=== PATIENT | male | born 1945 | race Hispanic/Latino ===

== ENCOUNTER 2018-04-03 07:53 | Inpatient (IN) | payer OTHER ==
[2018-04-01 16:46] LABS: BASOPHILS % 0.1 % (0.0-1.0); EOSINOPHILS # (AUTO) 0.3 (0.0-0.4); EOSINOPHILS % 4.4 % (0.0-6.0); HEMATOCRIT 34.2 % (38.2-49.6); HEMOGLOBIN 10.1 g/dL (14.0-18.0); LYMPHOCYTES # (AUTO) 3.2 (1.0-3.2); LYMPHOCYTES % 46.1 % (18.0-39.1); MEAN CORPUSCULAR HEMOGLOBIN 24.3 pg (28-32); MEAN CORPUSCULAR HGB CONC 29.5 g/dL (31-35); MEAN CORPUSCULAR VOLUME 82.4 fL (81-99); MONOCYTES # (AUTO) 0.5 (0.2-0.8); MONOCYTES % 7.4 % (4.4-11.3); NEUTROPHILS # (AUTO) 2.9 (2.1-6.9); NEUTROPHILS % 41.4 % (38.7-80.0); PLATELET COUNT 253 x10e3/uL (140-360); RED BLOOD COUNT 4.15 x10e6/uL (4.3-5.7); RED CELL DISTRIBUTION WIDTH 17.7 % (11.7-14.4)
[2018-04-01 16:55] LABS: BLOOD UREA NITROGEN 9 mg/dL (7-26); BUN/CREATININE RATIO 8 (6-25); CALCIUM 8.6 mg/dL (8.4-10.2); CARBON DIOXIDE 21 mmol/L (22-29); CHLORIDE 111 mmol/L (98-107); CREATININE, SERUM 1.07 mg/dL (0.72-1.25); EST GLOMERULAR FILTRATION RATE > 60 ML/MIN (60-); GLUCOSE 113 mg/dL (74-118); SODIUM 141 mmol/L (136-145)
--- NOTE | 2018-04-01 17:35 | Diagnostic Imaging Report ---
PROCEDURE: Frontal and lateral views of the chest. COMPARISON: 08/12/12 INDICATIONS: PRE-OPERATIVE CHEST X-RAY FOR PROSTATE SURGERY FINDINGS: Lines/tubes: None. Lungs: The lungs are well inflated and clear. There is no evidence of pneumonia or pulmonary edema. Pleura: There is no pleural effusion or pneumothorax. Heart and mediastinum: The heart and the mediastinum are normal. Bones: No acute bony abnormality. Cervical spine fusion hardware. Right humeral head anchor screws are again seen. IMPRESSION: 1. No acute cardiopulmonary disease. Dictated by: Scottie Cat M.D. on 04/01/2018 at 17:37 Electronically approved by: Scottie Cat M.D. on 04/01/2018 at 17:37
[~2018-04-03] VITALS: Ht 162.6 cm; Wt 78.9 kg
[~2018-04-03 07:53] MED LIST: FOLIC ACID1 MG PO; GEMFIBROZIL600 MG PO; LOSARTAN POTASS25 MG PO; METHOTREXATE2.5 MG PO; PANTOPRAZOLE SO40 MG PO; TRAMADOL HCL50 M1 PO; Z RANITIDINE HCL PO; Z.0.ACTOS45 MG PO; Z.0.BENAZEPRIL HCL10 PO; Z.0.LIPITOR40 MG PO; Z.0.TAMSULOSIN HCL0. PO; Z.1.METFORMIN HCL100 PO
[2018-04-03] MEDS ORDERED: GENTAMICIN 120MG/NS 100ML 0 ML ONE (08:33)
[2018-04-03] MEDS ORDERED: GENTAMICIN 80MG/NS 100 ML 100 ML IV ONE ×2 (08:33→09:07)
[2018-04-03] MEDS ORDERED: CEFTRIAXONE SOD 1 GM VIAL ONE (08:34)
[2018-04-03] MEDS ORDERED: METHOTREXATE2.5 MG PO (09:24)
[2018-04-03] MEDS ORDERED: BELLADONNA/OPIUM 30 MG SUPP RC ONE (09:45)
[2018-04-03] MEDS ORDERED: IOPAMIDOL 610MG/1ML 300 MG/ML VIAL IV ONE (09:45)
[2018-04-03] MEDS ORDERED: FENTANYL CITRATE/PF 100MCG/2 ML INJ ONE ×2 (12:19→13:08)
[2018-04-03] MEDS: SODIUM CHLORIDE 0.9% 1000ML 1,000 ML IV SCH ×2 (12:37→17:33)
[2018-04-03] MEDS ORDERED: NALOXONE HCL INJ 0.4 MG/ML AMP IV PRN (12:45)
[2018-04-03] MEDS ORDERED: BELLADONNA/OPIUM 60 MG SUPP PR PRN (12:45)
[2018-04-03] MEDS ORDERED: MORPHINE SULFATE 1 MG/ML 30ML PCA IV PRN (12:45)
[2018-04-03] MEDS ORDERED: DIPHENHYDRAMINE HCL 25 MG CAP PO PRN (12:45)
[2018-04-03] MEDS ORDERED: DIPHENHYDRAMINE HCL INJ 50 MG/ML VIAL IM PRN (12:45)
[2018-04-03] MEDS ORDERED: ACETAMINOPHEN 1000 MG/100 ML IV PRN (12:45)
[2018-04-03] MEDS ORDERED: ONDANSETRON HCL INJ 2 MG/ML VIAL ONE (12:53)
[2018-04-03] MEDS ORDERED: DEXAMETHASONE SOD PHOS INJ 4 MG/ML VIAL ONE (12:53)
[2018-04-03] MEDS ORDERED: SEVOFLURANE INHAL SOLN 250 ML PEN BTL ONE (12:53)
[2018-04-03] MEDS ORDERED: PROPOFOL IV EMULSION 10 MG/ML 20 ML VIAL ONE (12:53)
[2018-04-03] MEDS: PHENAZOPYRIDINE HCL 100 MG TAB PO SCH ×2 (13:00→17:30)
[2018-04-03] MEDS ORDERED: MORPHINE SULFATE 1 MG/ML 30ML PCA ONE (13:02)
[2018-04-03] MEDS ORDERED: MIDAZOLAM HCL 2 MG/2 ML VIAL ONE (13:08)
[2018-04-03] MEDS ORDERED: KETAMINE HCL INJ 50 MG/ML 10 ML VIAL ONE (13:08)
[2018-04-03 13:44] VITALS: BP 144/72
[2018-04-03 14:00] VITALS: BP 129/63
[2018-04-03] MEDS ORDERED: BELLADONNA/OPIUM 30 MG SUPP RC PRN (16:15)
[2018-04-03 16:49] VITALS: BP 129/63
[2018-04-03] MEDS: DOCUSATE SODIUM 100 MG CAP PO SCH (17:00)
[2018-04-03] MEDS ORDERED: FOLIC ACID 1 MG TAB PO SCH (19:45)
[2018-04-03] MEDS ORDERED: DEXTROSE 50% SYRINGE 50 ML IV PRN (19:45)
[2018-04-03] MEDS ORDERED: TREXALL15 MG PO (19:59)
[2018-04-03] MEDS ORDERED: LOPID600 MG PO (19:59)
[2018-04-03] MEDS ORDERED: METFORMIN HCL1000 MG PO (19:59)
[2018-04-03 20:00] VITALS: BP 122/66
[2018-04-03] MEDS ORDERED: METHOTREXATE SOD 2.5 MG TAB PO SCH (20:30)
[2018-04-03] MEDS: INSULIN LISPRO 100 UNIT/1 ML 3ML VIAL SQ SCH (20:31)
[2018-04-03 20:52] VITALS: BP_SYST 122; BP_SYST 163; BP_DIAS 66; BP_DIAS 78
[2018-04-04] VITALS (7 sets, daily range): BP systolic 115–143; BP diastolic 59–66
[2018-04-04 05:30] LABS: EOSINOPHILS # (AUTO) 0.4 (0.0-0.4); EOSINOPHILS % 4.5 % (0.0-6.0); HEMATOCRIT 29.3 % (38.2-49.6); HEMOGLOBIN 9.1 g/dL (14.0-18.0); LYMPHOCYTES # (AUTO) 1.4 (1.0-3.2); LYMPHOCYTES % 14.4 % (18.0-39.1); MEAN CORPUSCULAR HEMOGLOBIN 24.4 pg (28-32); MEAN CORPUSCULAR HGB CONC 31.1 g/dL (31-35); MEAN CORPUSCULAR VOLUME 78.6 fL (81-99); MONOCYTES # (AUTO) 0.7 (0.2-0.8); MONOCYTES % 7.6 % (4.4-11.3); NEUTROPHILS # (AUTO) 6.9 (2.1-6.9); PLATELET COUNT 242 x10e3/uL (140-360); RED BLOOD COUNT 3.73 x10e6/uL (4.3-5.7); RED CELL DISTRIBUTION WIDTH 17.7 % (11.7-14.4)
[2018-04-04 05:48] LABS: SODIUM 139 mmol/L (136-145)
[2018-04-04 05:49] LABS: ANION GAP 12.2 mmol/L (8-16); BLOOD UREA NITROGEN 14 mg/dL (7-26); BUN/CREATININE RATIO 16 (6-25); CALCIUM 8.1 mg/dL (8.4-10.2); CARBON DIOXIDE 22 mmol/L (22-29); CHLORIDE 108 mmol/L (98-107); CREATININE, SERUM 0.87 mg/dL (0.72-1.25); EST GLOMERULAR FILTRATION RATE > 60 ML/MIN (60-); GLUCOSE 163 mg/dL (74-118); POTASSIUM 3.2 mmol/L (3.5-5.1)
[2018-04-04] MEDS: INSULIN LISPRO 100 UNIT/1 ML 3ML VIAL SQ SCH ×4 (07:30→20:52)
[2018-04-04] MEDS: LOSARTAN POTASSIUM 25 MG TAB PO SCH (08:30)
[2018-04-04] MEDS: CEFTRIAXONE SOD 1 GM VIAL IV SCH (08:30)
[2018-04-04] MEDS: PANTOPRAZOLE SOD 40 MG TABEC PO SCH (08:30)
[2018-04-04] MEDS: SODIUM CHLORIDE 0.9% 1000ML 1,000 ML IV SCH (08:30)
[2018-04-04] MEDS: METFORMIN HCL 500 MG TAB PO SCH ×2 (08:30→17:12)
[2018-04-04] MEDS: DOCUSATE SODIUM 100 MG CAP PO SCH ×2 (08:30→17:12)
[2018-04-04] MEDS: PHENAZOPYRIDINE HCL 100 MG TAB PO SCH ×3 (08:31→17:12)
[2018-04-04] MEDS: GEMFIBROZIL 600 MG TAB PO SCH ×2 (08:31→17:12)
[2018-04-04] MEDS: TAMSULOSIN HCL 0.4 MG CAP PO SCH (08:31)
[2018-04-04] MEDS ORDERED: MAGNESIUM HYDROXIDE 30 ML UDC PO PRN (11:30)
[2018-04-04] MEDS ORDERED: HYDROCODONE/APAP 7.5MG-325MG 1 EA TAB PO PRN (11:30)
[2018-04-04] MEDS ORDERED: MORPHINE SULFATE 2 MG/ML SYR IV PRN (11:45)
[2018-04-04] MEDS: OXYBUTYNIN CHLORIDE XL 5 MG TAB PO SCH (17:12)
[2018-04-04] MEDS: TRAMADOL HCL 50 MG TAB PO SCH (20:25)
[2018-04-05] VITALS (8 sets, daily range): BP systolic 102–139; BP diastolic 54–66
[2018-04-05 05:43] LABS: BASOPHILS % 0.3 % (0.0-1.0); EOSINOPHILS % 12.4 % (0.0-6.0); HEMATOCRIT 25.7 % (38.2-49.6); HEMOGLOBIN 7.8 g/dL (14.0-18.0); LYMPHOCYTES % 25.4 % (18.0-39.1); MEAN CORPUSCULAR HEMOGLOBIN 24.5 pg (28-32); MEAN CORPUSCULAR HGB CONC 30.4 g/dL (31-35); MEAN CORPUSCULAR VOLUME 80.8 fL (81-99); MONOCYTES # (AUTO) 0.5 (0.2-0.8); MONOCYTES % 5.8 % (4.4-11.3); NEUTROPHILS # (AUTO) 4.3 (2.1-6.9); NEUTROPHILS % 55.8 % (38.7-80.0); PLATELET COUNT 222 x10e3/uL (140-360); RED BLOOD COUNT 3.18 x10e6/uL (4.3-5.7); RED CELL DISTRIBUTION WIDTH 17.9 % (11.7-14.4)
[2018-04-05 06:03] LABS: ANION GAP 12.3 mmol/L (8-16); BLOOD UREA NITROGEN 11 mg/dL (7-26); BUN/CREATININE RATIO 13 (6-25); CALCIUM 8.1 mg/dL (8.4-10.2); CARBON DIOXIDE 23 mmol/L (22-29); CHLORIDE 107 mmol/L (98-107); CREATININE, SERUM 0.84 mg/dL (0.72-1.25); EST GLOMERULAR FILTRATION RATE > 60 ML/MIN (60-); GLUCOSE 140 mg/dL (74-118); POTASSIUM 3.3 mmol/L (3.5-5.1); SODIUM 139 mmol/L (136-145)
[2018-04-05] MEDS: INSULIN LISPRO 100 UNIT/1 ML 3ML VIAL SQ SCH ×4 (07:30→21:00)
[2018-04-05] MEDS: PANTOPRAZOLE SOD 40 MG TABEC PO SCH (07:45)
[2018-04-05] MEDS: OXYBUTYNIN CHLORIDE XL 5 MG TAB PO SCH ×2 (08:14→16:14)
[2018-04-05] MEDS: TAMSULOSIN HCL 0.4 MG CAP PO SCH (08:14)
[2018-04-05] MEDS: METFORMIN HCL 500 MG TAB PO SCH ×2 (08:14→16:14)
[2018-04-05] MEDS: DOCUSATE SODIUM 100 MG CAP PO SCH ×2 (08:14→17:08)
[2018-04-05] MEDS: CEFTRIAXONE SOD 1 GM VIAL IV SCH (08:14)
[2018-04-05] MEDS: LOSARTAN POTASSIUM 25 MG TAB PO SCH (08:14)
[2018-04-05] MEDS: PHENAZOPYRIDINE HCL 100 MG TAB PO SCH ×3 (08:15→17:08)
[2018-04-05] MEDS: GEMFIBROZIL 600 MG TAB PO SCH ×2 (08:15→16:14)
[2018-04-05] MEDS ORDERED: POTASSIUM CHLORIDE 10 MEQ TABCR PO NR (09:15)
[2018-04-05] MEDS: TRAMADOL HCL 50 MG TAB PO SCH ×2 (09:27→21:00)
[2018-04-05] MEDS: IRON-VITAMIN-MINERAL CAPSULE PO SCH ×2 (09:41→17:08)
[2018-04-05] MEDS: CALCIUM CARBONATE 500 MG CHEWABLE TABS PO SCH ×2 (16:10→22:04)
[2018-04-06] VITALS: BP 118/66
[2018-04-06 04:00] VITALS: BP 114/58
[2018-04-06 05:30] LABS: EOSINOPHILS # (AUTO) 1.1 (0.0-0.4); HEMATOCRIT 25.4 % (38.2-49.6); HEMOGLOBIN 7.6 g/dL (14.0-18.0); LYMPHOCYTES # (AUTO) 1.7 (1.0-3.2); LYMPHOCYTES % 26.7 % (18.0-39.1); MEAN CORPUSCULAR HEMOGLOBIN 24.4 pg (28-32); MEAN CORPUSCULAR HGB CONC 29.9 g/dL (31-35); MEAN CORPUSCULAR VOLUME 81.7 fL (81-99); MONOCYTES # (AUTO) 0.3 (0.2-0.8); NEUTROPHILS # (AUTO) 3.3 (2.1-6.9); NEUTROPHILS % 51.8 % (38.7-80.0); PLATELET COUNT 227 x10e3/uL (140-360); RED BLOOD COUNT 3.11 x10e6/uL (4.3-5.7); RED CELL DISTRIBUTION WIDTH 17.6 % (11.7-14.4)
[2018-04-06 05:58] LABS: ANION GAP 13.2 mmol/L (8-16); BLOOD UREA NITROGEN 9 mg/dL (7-26); BUN/CREATININE RATIO 10 (6-25); CALCIUM 8.7 mg/dL (8.4-10.2); CARBON DIOXIDE 24 mmol/L (22-29); CHLORIDE 106 mmol/L (98-107); CREATININE, SERUM 0.89 mg/dL (0.72-1.25); EST GLOMERULAR FILTRATION RATE > 60 ML/MIN (60-); GLUCOSE 150 mg/dL (74-118); POTASSIUM 4.2 mmol/L (3.5-5.1); SODIUM 139 mmol/L (136-145)
[2018-04-06 07:33] LABS: ANISOCYTOSIS SLIGHT; BLAST CELLS % MANUAL 2; EOSINOPHILS % (MANUAL) 18 % (0-7); HYPOCHROMASIA MODERATE; LYMPHOCYTES % (MANUAL) 22 % (19-48); MONOCYTES % (MANUAL) 2 % (3.4-9.0); NEUTROPHILS % (MANUAL) 56 % (40-74); POIKILOCYTOSIS SLIGHT
[2018-04-06 07:34] LABS: PLATELET ESTIMATE ADEQUATE; PLATELET MORPHOLOGY COMMENT NORMAL; RBC MORPHOLOGY COMMENT NORMAL
[2018-04-06 08:15] VITALS: BP 136/63
[2018-04-06] MEDS: DOCUSATE SODIUM 100 MG CAP PO SCH ×2 (08:27→17:11)
[2018-04-06] MEDS: PANTOPRAZOLE SOD 40 MG TABEC PO SCH (08:27)
[2018-04-06] MEDS: CEFTRIAXONE SOD 1 GM VIAL IV SCH (08:27)
[2018-04-06] MEDS: METFORMIN HCL 500 MG TAB PO SCH ×2 (08:27→17:11)
[2018-04-06] MEDS: GEMFIBROZIL 600 MG TAB PO SCH ×2 (08:28→17:11)
[2018-04-06] MEDS: PHENAZOPYRIDINE HCL 100 MG TAB PO SCH ×3 (08:28→17:11)
[2018-04-06] MEDS: OXYBUTYNIN CHLORIDE XL 5 MG TAB PO SCH ×2 (08:28→17:11)
[2018-04-06] MEDS: TRAMADOL HCL 50 MG TAB PO SCH (08:28)
[2018-04-06] MEDS: IRON-VITAMIN-MINERAL CAPSULE PO SCH ×2 (08:28→17:11)
[2018-04-06] MEDS: CALCIUM CARBONATE 500 MG CHEWABLE TABS PO SCH ×2 (08:28→14:22)
[2018-04-06] MEDS: TAMSULOSIN HCL 0.4 MG CAP PO SCH (08:28)
[2018-04-06] MEDS: LOSARTAN POTASSIUM 25 MG TAB PO SCH (08:28)
[2018-04-06] MEDS: INSULIN LISPRO 100 UNIT/1 ML 3ML VIAL SQ SCH ×3 (08:28→17:12)
[2018-04-06 12:24] VITALS: BP 121/62
[2018-04-06 16:24] VITALS: BP 114/64
--- NOTE | 2018-05-20 21:46 | Discharge Summary ---
FINAL DIAGNOSES 1. Status post cystoscopy with transurethral resection of prostate. 2. Baseline enlarged prostate. 3. Hematuria. 4. Recurrent urinary tract infection. SUMMARY: Patient is a 73-year-old male, status post TURP procedures. The patient was stable. Procedure was done by Dr. Duncan Blanchard. Patient admitted to medical service for continue with medical management due to multiple chronic medical problems. Patient postoperatively continued to improve. Meeks catheter was subsequently discontinued. Patient with good urine output. No obstruction. He was stable. Patient subsequently discharged home. Resume home medications. Prescription was given by Dr. Duncan Blanchard. The patient to follow with Dr. Duncan Blanchard for postoperative care. Job#: [id number] CQ
--- NOTE | 2018-06-01 03:33 | Operative Report ---
DATE OF PROCEDURE: April 03, 2018 PREOPERATIVE DIAGNOSES: 1. Obstructive benign prostatic hypertrophy. 2. Gross hematuria. 3. Urinary tract infections. POSTOPERATIVE DIAGNOSES: 1. Obstructive benign prostatic hypertrophy. 2. Gross hematuria. 3. Urinary tract infections. 4. Urethral stricture disease. OPERATIONS PERFORMED: 1. Cystourethroscopy with calibration and dilation of bulbar urethral stricture disease (separate procedure performed for the stricture disease). 2. Cystourethroscopy with bilateral ureteral catheterization and retrograde ureteropyelography (separate procedure performed for the hematuria and urinary tract infections). 3. Interpretation of retrograde ureteropyelography. 4. Supervision of fluoroscopy, no radiologist present. 5. Cystourethroscopy with transurethral resection of the prostate (separate procedure performed for the obstructive benign prostatic hypertrophy). ANESTHESIA: General. COMPLICATIONS: None. CLINICAL SUMMARY: Hugo Rahman is a 73-year-old man with severe BPH. The patient has had several procedures previously and has persistent symptomatology. He is brought to the operating room today in hopes of performing yet one more prostatectomy on him and in hopes of his voiding improving. He is aware of the risks of bleeding, infection, injury to adjacent structures, need for additional procedures, incontinence, impotence, and elected to proceed. OPERATIVE PROCEDURE IN DETAIL: Informed consent was verified. Hugo Rahman was properly identified, taken to the operating room, and placed on the cystoscopy table in supine position. Anesthesia was uneventfully begun. The patient was then carefully and gently repositioned in the dorsal lithotomy position with all pressure points well padded. His genitalia were prepared and draped in usual sterile fashion. The 22.5-Cypriot cystoscope sheath with the visual obturator in place was atraumatically inserted into patient's urethra. It was guided down the unremarkable distal urethra to the bulbar region where a stricture was identified. This stricture was dilated to the level of the sheath thus dilating to 22.5-Cypriot. We then entered the patient's prostate bed via the normal sphincteric region. The prostate bed was significant for residual BPH with adhesion from one lateral lobe to the other. There appeared to be visual obstruction of residual BPH as well as those adhesions. We entered the patient's bladder after we broke through those adhesions and we revealed heavy trabeculations throughout the bladder, but no suspicious lesions. An 8-Cypriot catheter was used to cannulate each ureter, and retrograde ureteral pyelograms were performed. Interpretation of retrograde ureteropyelography: Contrast was instilled in retrograde fashion bilaterally. There were no tumors, no stones, and no diverticula. Unobstructed drainage was observed bilaterally fluoroscopically. 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 Under direct vision following dilation with López sounds, we placed the resectoscope sheath. We then performed transurethral resection of prostate from the bladder neck to but never past the verumontanum. We took care to resect all the scar tissue that was obstructing as well as the mild residual BPH that was obstructing. We resected down to the surgical capsule and to a healthy-appearing tissue, which we hope will not scar down. Hemostasis was achieved with pinpoint electrocautery. The bladder was evacuated of any debris. A Meeks catheter was placed, and the patient was uneventfully reversed from anesthesia and taken to recovery room in stable condition. There were no complications to the procedure. Patient tolerated the procedure well. Sponge, needle, and instrument counts were quoted as correct x2 at the end of the case. Estimated blood loss was minimal. Will plan to admit the patient for continuous bladder irrigation as well as intravenous antibiotics as well as close observation. Job#: [id number]
== END 2018-04-06 18:10 | disposition home or self-care (01) | DRG 714 ==
LOC: OR 07:53 → PACU V 13:07 → MED/SURG 13:27
PROVIDERS: ADMIT Internal Medicine; ATTEND Internal Medicine
PROC: BT141ZZ Fluoroscopy of Kidneys, Ureters and Bladder using Low Osmolar Contrast (ICD-10-PCS; 2018-04-03)
PROC: 0T788ZZ Dilation of Bilateral Ureters, Via Natural or Artificial Opening Endoscopic (ICD-10-PCS; 2018-04-03)
PROC: 0T7D8ZZ Dilation of Urethra, Via Natural or Artificial Opening Endoscopic (ICD-10-PCS; 2018-04-03)
PROC: 0VT08ZZ Resection of Prostate, Via Natural or Artificial Opening Endoscopic (ICD-10-PCS; principal; 2018-04-03 10:00)
DX: N40.1 Benign prostatic hyperplasia with lower urinary tract symptoms (principal); R33.8 Other retention of urine; E11.9 Type 2 diabetes mellitus without complications; K21.9 Gastro-esophageal reflux disease without esophagitis; M06.9 Rheumatoid arthritis, unspecified; N41.1 Chronic prostatitis; Z87.891 Personal history of nicotine dependence; N32.81 Overactive bladder; N39.41 Urge incontinence; N28.1 Cyst of kidney, acquired; Z87.440 Personal history of urinary (tract) infections; I10 Essential (primary) hypertension; Z79.84 Long term (current) use of oral hypoglycemic drugs; R39.14 Feeling of incomplete bladder emptying
CPT/HCPCS: 36415; 71046; 74420; 80048; 82948; 85025; 88305; 93005; 96372; J0696; J1100; J1580; J2250; J2270; J2405; J7030; J8610

== ENCOUNTER → 2024-09-13 | Day surgery (SDC) | payer MEDICARE, OTHER ==
[~2024-09-13] MED LIST changes: +ACETAMINOPHEN 1000 MG/100 ML 100 ML IV ONE; +ACTOS15 MG PO; +CEFAZOLIN SODIUM 2 GM ONE; +CO Q-10100 MG PO; +DEXAMETHASONE SOD PHOS INJ 4 MG/ML SDV ONE; +EPHEDRINE SULFATE INJ 50 MG/ML VIAL ONE; +FARXIGA10 MG PO; +FENOFIBRATE145 MG PO; +FENTANYL CITRATE/PF 100MCG/2 ML INJ ONE; +FINASTERIDE5 MG PO; +GABAPENTIN100 MG PO; +IRON PO; +JANUVIA50 MG PO; +LACTATED RINGER'S 1,000 ML ONE; +LIDOCAINE HCL 2% LOCAL INJ 5 ML SDV VIAL INJ ONE; +LIPITOR10 MG PO; +LOPID600 MG PO; +METFORMIN HCL1000 MG PO; +MYRBETRIQ50 MG PO; +ONDANSETRON HCL INJ 2MG/ML 2ML 2 MG/ML VIAL ONE; +PROPOFOL IV EMULSION 10 MG/ML 20 ML VIAL ONE; +TOUJEO SOL300 UNIT/1 SC; +TREXALL15 MG PO; +VESICARE5 MG PO
[2024-09-13 11:05] LABS: BASOPHILS % 0.2 % (0.0-1.0); EOSINOPHILS # (AUTO) 0.2 (0.0-0.4); EOSINOPHILS % 2.6 % (0.0-6.0); HEMATOCRIT 53.5 % (38.2-49.6); HEMOGLOBIN 16.5 g/dL (14.0-18.0); LYMPHOCYTES % 36.9 % (18.0-39.1); MEAN CORPUSCULAR HEMOGLOBIN 30.3 pg (28-32); MEAN CORPUSCULAR HGB CONC 30.8 g/dL (31-35); MEAN CORPUSCULAR VOLUME 98.2 fL (81-99); MONOCYTES # (AUTO) 0.5 (0.2-0.8); MONOCYTES % 5.6 % (4.4-11.3); NEUTROPHILS # (AUTO) 4.5 (2.1-6.9); NEUTROPHILS % 54.3 % (38.7-80.0); PLATELET COUNT 180 x10e3/uL (140-360); RED BLOOD COUNT 5.45 x10e6/uL (4.3-5.7); RED CELL DISTRIBUTION WIDTH 12.7 % (11.7-14.4); WHITE BLOOD COUNT 8.21 x10e3/uL (4.8-10.8)
[2024-09-13 11:28] LABS: CREATININE, SERUM 1.54 mg/dL (0.72-1.25)
[2024-09-13 15:20] VITALS: BP 137/82; PULSE 69; RESP 16; O2SAT 96
== END | disposition home or self-care (01) ==
LOC: OR 09:33
PROVIDERS: ATTEND Urology
DX: N47.1 Phimosis (principal); N35.812 Other bulbous urethral stricture, male; N32.89 Other specified disorders of bladder; Z98.890 Other specified postprocedural states; N39.0 Urinary tract infection, site not specified; N32.81 Overactive bladder; R32 Unspecified urinary incontinence; D64.9 Anemia, unspecified; E11.9 Type 2 diabetes mellitus without complications; I10 Essential (primary) hypertension; E78.5 Hyperlipidemia, unspecified; K21.9 Gastro-esophageal reflux disease without esophagitis; K44.9 Diaphragmatic hernia without obstruction or gangrene; Z79.84 Long term (current) use of oral hypoglycemic drugs; Z79.4 Long term (current) use of insulin; Z79.899 Other long term (current) drug therapy; Z86.73 Personal history of transient ischemic attack (TIA), and cerebral infarction without residual deficits
CPT/HCPCS: 36415; 52281; 54161; 71046; 80048; 85025; 88304; 93005; J0131; J0690; J1100; J2003; J2405; J2704; J3010; J7121

== ENCOUNTER 2024-10-04 14:07 | Inpatient (IN) | payer MEDICARE ==
[~2024-10-04] VITALS: Ht 162.6 cm; Wt 81.6 kg
[~2024-10-04 14:07] MED LIST changes: -ACETAMINOPHEN 1000 MG/100 ML 100 ML IV ONE; -CEFAZOLIN SODIUM 2 GM ONE; -DEXAMETHASONE SOD PHOS INJ 4 MG/ML SDV ONE; -EPHEDRINE SULFATE INJ 50 MG/ML VIAL ONE; -FENTANYL CITRATE/PF 100MCG/2 ML INJ ONE; -LACTATED RINGER'S 1,000 ML ONE; -LIDOCAINE HCL 2% LOCAL INJ 5 ML SDV VIAL INJ ONE; -ONDANSETRON HCL INJ 2MG/ML 2ML 2 MG/ML VIAL ONE; -PROPOFOL IV EMULSION 10 MG/ML 20 ML VIAL ONE; -VESICARE5 MG PO
[2024-10-04 14:40] VITALS: TEMP 98.3
[2024-10-04] MEDS ORDERED: Morphine 4mg INJECTION 4 MG/ML INJ IV PRN (15:15)
[2024-10-04] MEDS ORDERED: ONDANSETRON HCL INJ 2MG/ML 2ML 2 MG/ML VIAL IV PRN (15:15)
[2024-10-04 15:18] LABS: BASOPHILS % 0.4 % (0.0-1.0); EOSINOPHILS # (AUTO) 0.3 (0.0-0.4); EOSINOPHILS % 3.8 % (0.0-6.0); HEMOGLOBIN 13.2 g/dL (14.0-18.0); LYMPHOCYTES # (AUTO) 2.7 (1.0-3.2); LYMPHOCYTES % 33.8 % (18.0-39.1); MEAN CORPUSCULAR HEMOGLOBIN 30.2 pg (28-32); MEAN CORPUSCULAR HGB CONC 30.7 g/dL (31-35); MEAN CORPUSCULAR VOLUME 98.4 fL (81-99); MONOCYTES # (AUTO) 0.6 (0.2-0.8); MONOCYTES % 7.1 % (4.4-11.3); NEUTROPHILS # (AUTO) 4.3 (2.1-6.9); NEUTROPHILS % 54.5 % (38.7-80.0); PLATELET COUNT 249 x10e3/uL (140-360); RED BLOOD COUNT 4.37 x10e6/uL (4.3-5.7); RED CELL DISTRIBUTION WIDTH 12.3 % (11.7-14.4); WHITE BLOOD COUNT 7.85 x10e3/uL (4.8-10.8)
[2024-10-04 15:29] LABS: ALBUMIN 3.2 g/dL (3.5-5.0); ALBUMIN/GLOBULIN RATIO 0.8 (0.8-2.0); ANION GAP 11.6 mmol/L (8-16); BILIRUBIN,TOTAL 0.4 mg/dL (0.2-1.2); CALCIUM 8.7 mg/dL (8.4-10.2); CREATININE, SERUM 1.38 mg/dL (0.72-1.25); POTASSIUM 3.6 mmol/L (3.5-5.1); TOTAL PROTEIN 7.2 g/dL (6.5-8.1)
[2024-10-04] MEDS ORDERED: SODIUM CHLORIDE 0.9% 1000ML 1,000 ML ONE (17:22)
[2024-10-04] MEDS: SODIUM CHLORIDE 0.9% 1000ML 1,000 ML IV STA (17:28)
[2024-10-04 18:10] VITALS: RESP 16
[2024-10-04 19:20] VITALS: PULSE 63; RESP 16; O2SAT 100
[2024-10-04] MEDS: Vancomycin IV 1 GM in SODIUM CHLORIDE 0.9% 250ML 250 ML IV ONE ×2 (19:22→19:27)
[2024-10-04 20:00] VITALS: PULSE 66
[2024-10-05] VITALS (10 sets, daily range): BP systolic 121–148; BP diastolic 66–82; PULSE 56–82; RESP 18–19; TEMP 97.5–98.6; O2SAT 96–100
[2024-10-05 04:24] LABS: BASOPHILS % 0.2 % (0.0-1.0); EOSINOPHILS # (AUTO) 0.4 (0.0-0.4); EOSINOPHILS % 4.3 % (0.0-6.0); HEMATOCRIT 41.8 % (38.2-49.6); HEMOGLOBIN 12.7 g/dL (14.0-18.0); LYMPHOCYTES # (AUTO) 2.5 (1.0-3.2); LYMPHOCYTES % 30.5 % (18.0-39.1); MEAN CORPUSCULAR HEMOGLOBIN 30.2 pg (28-32); MEAN CORPUSCULAR HGB CONC 30.4 g/dL (31-35); MEAN CORPUSCULAR VOLUME 99.5 fL (81-99); MONOCYTES # (AUTO) 0.6 (0.2-0.8); MONOCYTES % 7.1 % (4.4-11.3); NEUTROPHILS # (AUTO) 4.7 (2.1-6.9); NEUTROPHILS % 57.5 % (38.7-80.0); PLATELET COUNT 231 x10e3/uL (140-360); RED CELL DISTRIBUTION WIDTH 12.4 % (11.7-14.4); WHITE BLOOD COUNT 8.17 x10e3/uL (4.8-10.8)
[2024-10-05 04:33] LABS: CALCIUM 8.4 mg/dL (8.4-10.2); CREATININE, SERUM 1.33 mg/dL (0.72-1.25)
[2024-10-05] MEDS ORDERED: VESICARE5 MG PO (06:42)
[2024-10-05] MEDS ORDERED: DEXTROSE 50% SYRINGE 50 ML IV PRN (09:00)
[2024-10-05] MEDS ORDERED: HYDRALAZINE HCL 20 MG/ML VIAL IV PRN (09:00)
[2024-10-05] MEDS ORDERED: ACETAMINOPHEN 325 MG TAB PO PRN (09:00)
[2024-10-05 11:01] LABS: BILIRUBIN,URINE NEGATIVE (NEGATIVE); CLARITY,URINE SL CLOUDY (CLEAR); COLOR,URINE YELLOW (YELLOW); GLUCOSE, URINE NEGATIVE (NEGATIVE); KETONES,URINE NEGATIVE (NEGATIVE); LEUKOCYTE ESTERASE ,URINE SMALL (NEGATIVE); NITRITE,URINE NEGATIVE (NEGATIVE); PH,URINE 7.5 (5 - 7); PROTEIN,URINE DIPSTICK TRACE (NEGATIVE); URINE UROBILINOGEN 0.2 mg/dL (0.2 - 1)
[2024-10-05 11:18] LABS: BACTERIA,URINE MODERATE /HPF; EPITHELIAL CELLS,URINE FEW /LPF; RBC,URINE 21-50 /HPF (0-5); WBC,URINE (MAN) >50 /HPF (0-5)
[2024-10-05] MEDS: PIOGLITAZONE HCL 15 MG TAB PO SCH (11:21)
[2024-10-05] MEDS: FINASTERIDE 5 MG TAB PO SCH (11:21)
[2024-10-05] MEDS: LOSARTAN POTASSIUM 25 MG TAB PO SCH (11:22)
[2024-10-05] MEDS: FENOFIBRATE 145 MG TAB PO SCH (11:22)
[2024-10-05] MEDS: PANTOPRAZOLE SOD 40 MG TABEC PO SCH (11:23)
[2024-10-05] MEDS: SOLIFENACIN SUCCINATE 5 MG TAB PO SCH (11:23)
[2024-10-05] MEDS: GABAPENTIN 100 MG CAP PO SCH (11:23)
[2024-10-05] MEDS: INSULIN LISPRO 100 UNIT/1 ML 3ML VIAL SQ SCH (11:24)
[2024-10-05] MEDS: TAMSULOSIN HCL 0.4 MG CAP PO SCH (11:28)
[2024-10-05] MEDS: ATORVASTATIN 10 MG TAB PO SCH (22:24)
[2024-10-06 01:19] VITALS: BP 135/77; PULSE 59; RESP 16; TEMP 97.7; O2SAT 100
[2024-10-06 05:45] LABS: BASOPHILS % 0.2 % (0.0-1.0); EOSINOPHILS # (AUTO) 0.6 (0.0-0.4); EOSINOPHILS % 7.2 % (0.0-6.0); HEMATOCRIT 43.3 % (38.2-49.6); HEMOGLOBIN 13.7 g/dL (14.0-18.0); LYMPHOCYTES # (AUTO) 3.4 (1.0-3.2); LYMPHOCYTES % 38.9 % (18.0-39.1); MEAN CORPUSCULAR HEMOGLOBIN 29.9 pg (28-32); MEAN CORPUSCULAR HGB CONC 31.6 g/dL (31-35); MEAN CORPUSCULAR VOLUME 94.5 fL (81-99); MONOCYTES # (AUTO) 0.7 (0.2-0.8); MONOCYTES % 7.5 % (4.4-11.3); NEUTROPHILS % 45.5 % (38.7-80.0); PLATELET COUNT 277 x10e3/uL (140-360); RED BLOOD COUNT 4.58 x10e6/uL (4.3-5.7); RED CELL DISTRIBUTION WIDTH 12.4 % (11.7-14.4); WHITE BLOOD COUNT 8.71 x10e3/uL (4.8-10.8)
[2024-10-06 06:14] LABS: ANION GAP 13.7 mmol/L (8-16); CREATININE, SERUM 1.4 mg/dL (0.72-1.25); POTASSIUM 3.7 mmol/L (3.5-5.1)
[2024-10-06 06:19] VITALS: BP 136/79; PULSE 60; RESP 20; TEMP 98.1; O2SAT 98
[2024-10-06 09:30] VITALS: BP 143/78; PULSE 70; RESP 20; TEMP 98.1; O2SAT 100; O2SAT 98
[2024-10-06 12:08] VITALS: BP 128/78; PULSE 65; RESP 20; O2SAT 100
[2024-10-06] MEDS: SODIUM CHLORIDE 0.9% 250ML 250 ML ONE (15:33)
[2024-10-06 20:00] VITALS: BP 129/93; PULSE 61; RESP 18; TEMP 97.6; O2SAT 99
[2024-10-07] VITALS (7 sets, daily range): BP systolic 108–142; BP diastolic 71–92; PULSE 63–71; RESP 18–20; TEMP 97.2–98.6; O2SAT 100
[2024-10-08] VITALS: BP 133/76; PULSE 71; RESP 18; TEMP 98.4; O2SAT 100
[2024-10-08 04:00] VITALS: BP 124/76; PULSE 64; RESP 18; TEMP 98.4; O2SAT 100
[2024-10-08 05:19] LABS: BASOPHILS % 0.3 % (0.0-1.0); EOSINOPHILS # (AUTO) 0.7 (0.0-0.4); EOSINOPHILS % 7.6 % (0.0-6.0); HEMATOCRIT 42.8 % (38.2-49.6); HEMOGLOBIN 13.7 g/dL (14.0-18.0); LYMPHOCYTES # (AUTO) 3.3 (1.0-3.2); LYMPHOCYTES % 36.3 % (18.0-39.1); MEAN CORPUSCULAR VOLUME 93.9 fL (81-99); MONOCYTES # (AUTO) 0.7 (0.2-0.8); MONOCYTES % 7.2 % (4.4-11.3); NEUTROPHILS # (AUTO) 4.3 (2.1-6.9); NEUTROPHILS % 48.2 % (38.7-80.0); PLATELET COUNT 290 x10e3/uL (140-360); RED BLOOD COUNT 4.56 x10e6/uL (4.3-5.7); RED CELL DISTRIBUTION WIDTH 12.4 % (11.7-14.4); WHITE BLOOD COUNT 9.03 x10e3/uL (4.8-10.8)
[2024-10-08 05:52] LABS: CALCIUM 9.3 mg/dL (8.4-10.2); CREATININE, SERUM 1.55 mg/dL (0.72-1.25)
[2024-10-08 07:20] VITALS: BP 124/76; PULSE 64; RESP 18; TEMP 98.4; O2SAT 100
[2024-10-08 09:02] VITALS: BP 124/74; PULSE 79; RESP 18; TEMP 98; O2SAT 98
[2024-10-08 20:00] VITALS: BP 124/75; PULSE 70; RESP 18; TEMP 98.9; O2SAT 100
[2024-10-08 21:00] VITALS: BP 124/75; PULSE 70; RESP 18; TEMP 98.9; O2SAT 100
[2024-10-09] VITALS (7 sets, daily range): BP systolic 106–132; BP diastolic 70–91; PULSE 66–76; RESP 18–20; TEMP 97.5–98.6; O2SAT 95–100
[2024-10-09] MEDS: ACETAMINOPHEN/CODEINE 300MG - 30MG TAB PO PRN (10:33)
[2024-10-09] MEDS: SODIUM CHLORIDE 0.45% 1,000 ML IV SCH (14:30)
[2024-10-10] VITALS (7 sets, daily range): BP systolic 118–143; BP diastolic 65–91; PULSE 70–78; RESP 17–20; TEMP 97.7–99; O2SAT 95–100
[2024-10-10 13:42] LABS: ANION GAP 13.8 mmol/L (8-16); CALCIUM 9.5 mg/dL (8.4-10.2); CREATININE, SERUM 1.64 mg/dL (0.72-1.25); POTASSIUM 3.8 mmol/L (3.5-5.1)
[2024-10-11 04:00] VITALS: BP 120/74; PULSE 76; RESP 18; TEMP 97.7; O2SAT 98
[2024-10-11 06:17] VITALS: BP 116/77; PULSE 76; RESP 18; TEMP 97.2; O2SAT 98
[2024-10-11 10:06] VITALS: BP 124/73; PULSE 73; RESP 20; O2SAT 100
[2024-10-11 10:09] VITALS: BP 124/73; PULSE 73; RESP 20; TEMP 97.2; O2SAT 100
[2024-10-11 12:46] VITALS: BP 154/85; PULSE 69; RESP 20; TEMP 98.6; O2SAT 98
== END 2024-10-11 16:03 | DRG 728 ==
LOC: ER 14:21 → ERHOLD 15:07 → MED/SURG 22:17
PROVIDERS: ADMIT Internal Medicine; ATTEND Internal Medicine
PROC: 02HV33Z Insertion of Infusion Device into Superior Vena Cava, Percutaneous Approach (ICD-10-PCS; principal; 2024-10-07)
PROC: B548ZZA Ultrasonography of Superior Vena Cava, Guidance (ICD-10-PCS; 2024-10-07)
DX: N48.29 Other inflammatory disorders of penis (principal); B96.4 Proteus (mirabilis) (morganii) as the cause of diseases classified elsewhere; E11.22 Type 2 diabetes mellitus with diabetic chronic kidney disease; N18.30 Chronic kidney disease, stage 3 unspecified; Z79.4 Long term (current) use of insulin; R53.81 Other malaise; Z98.890 Other specified postprocedural states; Z71.81 Spiritual or religious counseling; Z79.899 Other long term (current) drug therapy
CPT/HCPCS: 36415; 36568; 36569; 71045; 80048; 80053; 81001; 82948; 83036; 83605; 85025; 87040; 87071; 87086; 87186; 87205; 94799; 99252; 99284; J0690; J2543; J7030; J7050